=== PATIENT | female | born 1960 | race Two or more races ===

== ENCOUNTER 2024-04-18 11:34 | Emergency (ER) | payer MEDICAID ==
[~2024-04-18] VITALS: Ht 165.1 cm; Wt 95.0 kg
[~2024-04-18 11:34] MED LIST: HYDR-4383 PO; PANT-47 PO
[2024-04-18] MEDS ORDERED: HYDR25CA PO (12:23)
[2024-04-18] MEDS ORDERED: TRIA15CR61 TOP (12:25)
[2024-04-18 12:29] VITALS: BP 115/77; PULSE 69; RESP 17; TEMP 97.9; O2SAT 98
== END 2024-04-18 12:31 | disposition home or self-care (01) ==
LOC: ER 11:34
DX: H93.13 Tinnitus, bilateral (principal); G89.29 Other chronic pain; M54.9 Dorsalgia, unspecified; F41.9 Anxiety disorder, unspecified; Z79.899 Other long term (current) drug therapy
CPT/HCPCS: 99283

== ENCOUNTER 2024-11-11 09:14 | Day surgery (SDC) | payer MEDICAID ==
[2024-11-11] VITALS (12 sets, daily range): BP systolic 111–148; BP diastolic 57–92; PULSE 58–87; RESP 11–19; TEMP 97.9; O2SAT 96–100
[~2024-11-11] VITALS: Ht 170.2 cm; Wt 90.9 kg
[~2024-11-11 09:14] MED LIST changes: -HYDR-4383 PO; +OXYC-658 PO; -PANT-47 PO
[2024-11-11] MEDS ORDERED: MIDAZolam 1 MG/ML 5ML VIAL ONE (13:05)
[2024-11-11] MEDS ORDERED: diphenhydrAMINE 50 mg/ml inj ONE (13:05)
[2024-11-11] MEDS ORDERED: fentaNYL/PF 50MCG/1 ML 2ML syringe ONE (13:05)
== END 2024-11-11 14:15 | disposition home or self-care (01) ==
LOC: GI LAB 09:14
PROVIDERS: ATTEND Internal Medicine Gastroenterology
DX: Z12.11 Encounter for screening for malignant neoplasm of colon (principal); K57.30 Diverticulosis of large intestine without perforation or abscess without bleeding; Z86.0100 Personal history of colon polyps, unspecified
CPT/HCPCS: 45378; J2250; J3010; J7030; Z7512; 99152; 99153; A4620; J1200